=== PATIENT | male | born 1975 | race Caucasian/White ===

== ENCOUNTER → 2017-08-23 16:06 | Outpatient (CLI) | payer BC | END | disposition home or self-care (01) | LOC: D.CT 08-18 14:30 | DX: R91.1 Solitary pulmonary nodule (principal) ==

== ENCOUNTER → 2018-02-21 17:06 | Outpatient (CLI) | payer BC | END | disposition home or self-care (01) | LOC: D.CT 17:06 | DX: K57.92 Diverticulitis of intestine, part unspecified, without perforation or abscess without bleeding (principal) ==